=== PATIENT | male | born 1990 | race Caucasian/White ===

== ENCOUNTER 2018-07-07 06:47 | Day surgery (SDC) | payer OTHER ==
--- NOTE | 2018-07-06 21:07 | PDGENHP ---
History and Physical - Chief Complaint Right Hip Pain - History of Present Illness 1.~~~History of Right AUDREY 2. ~~s/p L hip arthroscopy labral repair, femorplasty, capsulorrhaphy by Dr. Weathers 06/21 3. 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 ~Madisonenjoys hiking, climbing, snowboarding, surfing. Oliver's~right~hip pain started before left hip surgery with Dr. Wolff, with~no~recalled trauma or injury, and with~no~previous complaints.~Madison has~a known history of hip dysplasia. Left hip started being painful in Summer of 2015 - no discrete injury or trauma. Thought it had been IP bursitis. Tried PT, dry needling, chiropractics, rolphing. Had corticosteroid injection in left. Had L hip scope by DUSTIN on .~ Presentation today is of~anterior~right~hip pain - feels deep. ~The hip~does not ~wake him~at night and~does~click and catch on~him. Sitting~does not present a problem~for him.~Madisondoes not~report suffering from lower back pain episodes. Madisonhas~participated in physical therapy and has not~tried other conservative measures including. He~has~not~received sufficient symptomatic improvement. Oliver~has~utilized medication for pain management, including Tumeric supplements and ibuprofen.~Madisonhas used medication for several~years. Madisondenies issues with the left~hip. ~ Madisonunderstands that~lyle~has a hip and pelvis problem which should be researched and wishes to get a better understanding of~his~hip status, followed by an establishment of a treatment strategy, hoping~he~would be able to get back to~his~well being active life. History: Past medical history:~~ Patient~~has no past medical history on file. Relevant familial history:~None which is relevant~ Past surgical history:~ - L hip scope labral repair, AIIS reduction, femoroplasty, capsulorrhaphy by Dr. Sarahy Muhammad knee ACL reconstruction in 2014 Madisondenies problematic issues with general anesthesia in the past. I have reviewed, verified and agree with the past medical, surgical, family and social history. Current Medications:~has a current medication list which includes the following prescription(s): citalopram hydrobromide, GENERIC DME, GENERIC DME, and GENERIC DME. ALLERGIES:~has No Known Allergies. Objective: Physical Examination: Madisonis 5~feet~11~inches tall and weighs~165~Lbs. Madisonis AAO x3; lyle~is well-nourished, in NAD. Skin is warm and dry. ~Breathing is non-labored. ~ CV with RRR by pulse. Abdomen is soft, NTND. Currently,~lyle~walks with a~normal~gait. Trendelenburg sign is~negative~and proprioception~is normal,~both~sides. He~presents~with mild~signs of joint laxity.~Beightons Score:~2 He~is fit looking. ~~ Lower spine examination is~negative~for sciatic or femoral nerve irritation with negative~SLR &~femoral stretch tests. Range of motion of the spine is normal~for flexion, extension, and rotations,~with no~associated pain. Strength, Sensation and pulses are~normal -~bilaterally Ankles and knees exams are~normal~and~no~mal-alignment is evident.~ He~has~no leg length discrepancy. Thigh circumference is~symmetric~with no evidence for muscle atrophy~on both~ sides. Hip ROM (degrees): FL ER At 90~hip FL IR At 90~hip FL AB AD EX IR Neutral hip ER Neutral hip R 105 45 30 35 15 5 45 45 L 105 45 20 35 10 5 50 35 Specific hip and pelvis tests: Impingement Test SHAMEKA Roll Add. Longus R +++ +++ +++ Negative L ++ Negative Negative Negative Glut. Med ITB Posterior Imp R Negative 5/5 strength Negative 5/5 strength Negative L Negative 5/5 strength Negative 5/5 strength Negative Squeeze test measured~normal Bony Symphysis pubis is~pain free~to touch while concentric activity of the rectus abdominis, does not~produce pain at its insertion. Ilio Psos specific tests are~positive for pain during cycling for~the right hip~ and remarkable for non painful snap HF has~pain~the right hip. Anterior and lateral~capsule tenderness on the right Greater trochanteric burse is~pain free~on both hips. Piriformis tests: FAIR is~negative,~with no~local signs of neuritis related to sciatic nerve. SIJs examination is~normal~with~normal~SHAMEKA in relation and local tenderness. Hamstrings tests are~negative~both hips. Overall deep hip pain accounts > 90% of his daily pain Imaging: Radiology studies which I~have personally reviewed, analyzed and measured are below: XR: AP of the hip and pelvis: Performed in a~good~technique Coccyx to pubic symphysis distance~2.3~cm. 20~degrees caudal Posterior pelvic tilt on standing In parenthesis measurements for upright, non standardized, AP plevis [place]~Lines are preserved. No~Pathological signs are seen in the Symphysis Pubis.~ No~Pathological signs are seen at the Ischial~tuberosity. ~ Specific measurements show: NSA~ LCE Sourcil~Angle Sharp's angle Lat. Cam Lat. Pincer C.Over~sign Head~Coverage % ATDmm R 125 18 (18) 10 (15) 41 N N N 74.1 + L 125 21 (24) 3 (3) 38 N N N 73 + Pos. wall sign ISS NAD ~~Dysplasia Comments R + Negative 14.9~mm ++ L Negative Negative 5.1~mm + Sclerosis Sup. Lat. OA Cysts Joint Space-WBZ Joint Space-Medial R Negative Negative Negative 4.1~mm 4.1~mm L Negative Negative Negative 3.9~mm 4.8~mm X Table lateral: Anterior cam lesion is~seen~on right~hip. Alpha Angle: ~ Right~68~dergrees Left~48~degrees MRI shows:~10/10/16 with arthrogram shows R hip labral tear, no labral hypertrophy , minimal cartilage fissuring and no subchondral edema Impression and plan:~ Oliver~is a~28 y.o.~active male~suffering from symptomatic~Right~hip pain due to retained hardware. Physical examination, imaging, and~his~story correspond with the diagnosis mentioned above. I explained that hip dysplasia is a condition wherein the hip joint has excessive play~and instability due to a variety of factors, including the depth and adequacy of the socket, the orientation of the femur bone, and ligament laxity around the hip joint. Dysplasia ranges in severity from borderline to litzy, with treatment options being specific to the specific nature of the problem. Left untreated, the instability in the hip joint can cause progressive tearing of the labrum and deterioration of the surface cartilage, ultimately resulting in progressive osteoarthritis of the hip. I explained that femoroacetabular impingement (ELYSIA - Cam type) arises due to a bony or soft tissue conflict between the femur (ball) and acetabulum (socket) caused by an abnormality in the shape of the femoral head and neck. Over time, repetitive impingement can result in damage to the labrum and adjacent surface cartilage within the socket, ultimately giving rise to progressive osteoarthritis of the hip. I explained that although a labral tear can be a source of pain, it is rarely the root of the problem and typically occurs secondary to an underlying abnormality in the shape and mechanics of the hip joint. I reviewed conservative treatment options for Dysplasia and ELYSIA including activity modification to avoid positions of impingement or instability, physical therapy, non-steroidal anti-inflammatory medications, and various injections (corticosteroid and PRP) aimed at reducing inflammation in the hip joint or/and preventing dynamic instability and impingement. PRP injections may promote healing and reduce symptoms in certain cases but it will not repair chronically damaged tissue. Although these measures may help to buy time~and reduce current level of symptoms, they are not a definitive solution to the problem given the underlying abnormality in the shape of the hip joint. Patients who have failed conservative management and continue to experience symptoms are candidates for definitive surgical treatment, which may consist of hip arthroscopy alone or in combination with more invasive bony realignment procedures of the hip socket and/or femur called periacetabular osteotomy (AUDREY) or derotational femoral osteotomy (DFO). Hip arthroscopy typically includes treating the labrum with either repair or reconstruction of the torn labrum; as well as addressing the underlying abnormalities by restoring the normal shape to the hip joint. If the cartilage is damaged a Microfracture surgical procedure may also be necessary to help stimulate the growth of fibrocartilage. If a patient requires a labral reconstruction or a Microfracture, the initial rehabilitation from the surgery may take longer, but the mcfp results are typically favorable. Two options potentially exist - just to do hip arthroscopy alone and see how he recovers~with the understanding there is high chance he will be back for a AUDREY due to his dysplastic characteristics,~versus do hip arthroscopy with a planned AUDREY to follow a week after.~ Based on his measurements the later would be a more predictable and reproducible option for mcfp releif. We discussed that he would have his hip arthroscopy performed by Dr. Weathers and then about a week later we would perform the AUDREY on the right hip. Madisonwill review the info presented. In order to obtain more detailed information regarding the alignment, orientation, and shape of the bony hip and pelvis I will order a CT scan to be performed. The results of the CT scan, including femoral torsion and acetabular version measured values and 3D images, will aid me in deciding on the best treatment strategy and surgical pre-planning. Madisonis happy with this plan. I have also supplied~him~with handouts, outlining the expected surgical treatment and rehab involved. I wish~Madisonall the best, ~~ Chayito Gold MD History Information - Allergies/Home Medication List Allergies/Adverse Reactions: No Known Allergies Allergy (Verified 10/07/17 10:41) Home Medications: Citalopram DAILY 06/23/18 [Last Taken Unknown] I have personally reviewed and updated: medical history - Social History Smoking Status: Former smoker Review of Systems Review of Systems: Physical Exam Physical Exam:
--- NOTE | 2018-07-07 06:30 | POSTANESTH ---
Post Anesthetic Evaluation Cardiovascular Status: Normal, Stable Respiratory Status: Normal, Stable Level of Consciousness/Mental Status: Can Participate in Eval, Alert and Oriented Pain Control: Adequate, Prn Tx Ordered Nausea/Vomiting Control: Adequate, Prn Tx Ordered Complications Possibly Related to Anesthesia: None Noted
--- NOTE | 2018-07-07 06:31 | PDANEPAE ---
ANE History of Present Illness 28 yo male s/p B hip scopes and PAOs now with painful R hip due to retained hardware. ANE Past Medical History - Cardiovascular History Hx Hypertension: No Hx Arrhythmias: No Hx Chest Pain: No Hx Coronary Artery / Peripheral Vascular Disease: No Hx CHF / Valvular Disease: No Hx Palpitations: No - Pulmonary History Hx COPD: No Hx Asthma/Reactive Airway Disease: No Hx Recent Upper Respiratory Infection: No Hx Oxygen in Use at Home: No Hx Sleep Apnea: No Sleep Apnea Screening Result - Last Documented: Negative - Neurologic History Hx Cerebrovascular Accident: No Hx Seizures: No Hx Dementia: No - Endocrine History Hx Diabetes: No Hypothyroid: No Hyperthyroid: No Obesity: no - Renal History Hx Renal Disorders: No - Liver History Hx Hepatic Disorders: No - Neurological & Psychiatric Hx Hx Neurological and Psychiatric Disorders: Yes Neurological / Psychiatric History Comment: ANXIETY - Cancer History Hx Cancer: No - Congenital Disorder History Hx Congenital Disorders: No - GI History Hx Gastrointestinal Disorders: No - Other Health History Other Health History: NEG - Chronic Pain History Chronic Pain: No - Surgical History Prior Surgeries: RT HIP AUDREY 11/11/18. RT HIP RESHAPING 11/06/17 IN [place] AT [facility]. LT HIP RESHAPING 06/2017. RT ACL RECONSTRUCTION ANE Review of Systems Review of systems is: negative Review of Systems: - Exercise capacity METS (RN): 4 METS - Systems Respiratory: Reports: no symptoms ANE Patient History - Allergies Allergies/Adverse Reactions: No Known Allergies Allergy (Verified 10/07/17 10:41) - Home Medications Home Medications: Citalopram DAILY 06/23/18 [Last Taken Unknown] - NPO status NPO Status: no food or drink >8 hours - Anes Hx Anes Hx: no prior problems - Smoking Hx Smoking Status: Former smoker Marijuana use: Yes - Family Anes Hx Family Anes Hx: neg - N/A ANE Labs/Vital Signs - Vital Signs Vital Signs: reviewed preoperatively; see RN documention for details Height: 180.34 cm Weight: 74.843 kg ANE Physical Exam - Airway Neck exam: FROM Mallampati Score: Class 2 Mouth exam: normal dental/mouth exam - Pulmonary Pulmonary: clear to auscultation - Cardiovascular Cardiovascular: regular rate and rhythym - ASA Status ASA Status: II ANE Anesthesia Plan Anesthesia Plan: GA w LMA
[2018-07-07] MEDS ORDERED: ceFAZolin 2 GM/DEXTROSE 100 ML IV ONE (07:05)
[2018-07-07] MEDS ORDERED: ACETAMINOPHEN 500 MG TAB PO ONE (07:05)
[2018-07-07] MEDS ORDERED: PREGABALIN 150 MG CAP PO ONE (07:05)
[2018-07-07] MEDS ORDERED: LR 1,000 ML IV ONE (07:06)
[2018-07-07] MEDS ORDERED: LIDOCAINE 1% 300 MG/30 ML SDV ONE (07:46)
[2018-07-07] MEDS ORDERED: MIDAZOLAM 2 MG/2 ML VIAL IVP ONE (07:58)
[2018-07-07] MEDS ORDERED: fentaNYL 100 MCG/2 ML INJ ONE (08:06)
[2018-07-07] MEDS ORDERED: DEXAMETHASONE 4 MG/ML VIAL ONE (08:06)
[2018-07-07] MEDS ORDERED: PROPOFOL/EMULSION 500 MG/50 ML BOTTLE IV ONE (08:06)
[2018-07-07] MEDS ORDERED: LIDOCAINE 2% 5 ML SDV ONE (08:06)
[2018-07-07] MEDS ORDERED: ONDANSETRON 4 MG/2 ML VIAL IVP PRN (08:52)
[2018-07-07] MEDS ORDERED: NALOXONE HCL 0.4 MG/ML INJ IVP PRN (08:52)
[2018-07-07] MEDS ORDERED: oxyCODONE IR 5 MG TAB PO PRN (08:52)
[2018-07-07] MEDS ORDERED: fentaNYL 100 MCG/2 ML INJ IVP PRN (08:52)
[2018-07-07] MEDS ORDERED: LR 500 ML IV PRN (08:52)
[2018-07-07] MEDS ORDERED: DIAZEPAM 5 MG/ML 1 ML SYR IVP PRN (08:52)
[2018-07-07 10:10] VITALS: BP 128/78
== END 2018-07-07 10:15 | disposition home or self-care (01) ==
LOC: FSGY 06:47
PROVIDERS: ATTEND Orthopaedic Surgery Sports Medicine
DX: T84.84XA Pain due to internal orthopedic prosthetic devices, implants and grafts, initial encounter (principal)
CPT/HCPCS: J0690; J1100; J2250; J2704; J3010